=== PATIENT | female | born 1930 | race American Indian/Alaskan Native ===

== ENCOUNTER 2016-10-06 16:03 | Outpatient (CLI) | payer MEDICARE ==
--- NOTE | 2016-10-09 11:05 | Cat Scan Report ---
CT scan of chest without IV contrast: History: Hypercalcemia. Findings: Enlarged left lobe of thyroid gland with hypodense lesions within the lobe. The right lobe appears small without any mass. No endobronchial lesion. Mediastinal lymph nodes are identified and do not appear enlarged. No pleural or pericardial effusion. No discrete nodularity or consolidation of the lung parenchyma. No mass. Impression: Hypodense lesions in the bilateral thyroid gland. Sonographic correlation may be advised. Mediastinal lymph nodes do not appear enlarged probably reactive. No consolidation or mass the lung parenchyma.
--- NOTE | 2016-10-09 11:12 | Cat Scan Report ---
CT scan of abdomen and pelvis without IV contrast: History: Hypercalcemia, weight loss. Findings: Normal liver spleen and pancreas. Distended stomach and filled with contrast. Thickening of the wall of the antrum and duodenal bulb. Normal adrenals. Kidneys are not optimally visualized the hypodensities are noted. No hydronephrosis. Normal urinary bladder. No free intraperitoneal fluid or air. No evidence of adenopathy. Atherosclerotic abdominal aorta without aneurysm. Gaseous colon with stool in colon. Right inguinal hernia measuring 5 cm in diameter containing large bowel loop without incarceration or strangulation. Left inguinal hernia containing fat measuring 2.5 cm in diameter. No appendicitis or diverticulitis. Impression: Suspected peptic ulcer disease the antrum. Hypodensities kidneys. Sonographic correlation advised. Bilateral inguinal hernia as detailed above.
== END 2016-10-06 16:04 | disposition home or self-care (01) ==
LOC: CT 16:03
PROVIDERS: ATTEND Internal Medicine Nephrology
DX: E83.52 Hypercalcemia (principal); R63.4 Abnormal weight loss
CPT/HCPCS: 71250; 74176